=== PATIENT | female | born 2000 | race Caucasian/White ===

== ENCOUNTER 2023-10-17 04:11 | Emergency (ER) | payer OTHER ==
[~2023-10-17] VITALS: Ht 139.7 cm; Wt 86.4 kg
[2023-10-17] MEDS ORDERED: VENTAER INH (07:50)
[2023-10-17] MEDS: NS 1,000 ML IV ONE (08:04)
[2023-10-17 08:17] LABS: BASO # 0.1 10^3/uL (0.0-0.2); BASO % 0.6 % (0.0-1.0); EOS # 0.5 10^3/uL (0.0-0.5); HEMOGLOBIN 14.5 g/dl (12.0-15.5); LYMPH # 3.2 10^3/uL (1.5-5.0); LYMPH % 19.9 % (24.0-44.0); MEAN CORPUSCULAR HEMOGLOBIN 33.3 pg (27.0-33.0); MEAN CORPUSCULAR HGB CONC 34.5 g/dl (32.0-36.5); MEAN CORPUSCULAR VOLUME 96.3 fl (80.0-96.0); MONO # 0.9 10^3/uL (0.0-0.8); MONO % 5.4 % (2.0-8.0); NEUTROPHILS # 11.2 10^3/uL (1.5-8.5); NEUTROPHILS % 70.3 % (36.0-66.0); PLATELET COUNT, AUTOMATED 440 10^3/uL (150-450); RED BLOOD COUNT 4.36 10^6/uL (4.00-5.40)
[2023-10-17 08:44] LABS: BLOOD UREA NITROGEN 9 MG/DL (9-23); CALCIUM LEVEL 8.9 MG/DL (8.5-10.1); CARBON DIOXIDE LEVEL 26 MMOL/L (20-31); CHLORIDE LEVEL 107 MMOL/L (98-107); CREATININE FOR GFR 0.71 MG/DL (0.55-1.30); GLOMERULAR FILTRATION RATE > 60.0 (>60); GLUCOSE, FASTING 93 MG/DL (60-100); POTASSIUM SERUM 4.3 MMOL/L (3.5-5.1); SODIUM LEVEL 138 MMOL/L (136-145)
[2023-10-17 08:58] LABS: HCG, SERUM QUALITATIVE POSITIVE (NEGATIVE)
[2023-10-17 09:18] LABS: PROCALCITONIN 0.04 ng/ml
[2023-10-17] MEDS ORDERED: CEPH500C PO (09:46)
[2023-10-17 10:13] VITALS: BP 121/79; TEMP 96.6; O2SAT 100
== END 2023-10-17 10:40 | disposition home or self-care (01) ==
LOC: EDBD 04:11 → M ED 04:11
DX: Z32.01 Encounter for pregnancy test, result positive (principal); N39.0 Urinary tract infection, site not specified; F17.210 Nicotine dependence, cigarettes, uncomplicated; Z88.1 Allergy status to other antibiotic agents; Z79.51 Long term (current) use of inhaled steroids; Z79.2 Long term (current) use of antibiotics

== ENCOUNTER 2023-10-18 22:18 | Emergency (ER) | payer OTHER ==
[~2023-10-18] VITALS: Ht 147.3 cm; Wt 117.4 kg
[~2023-10-18 22:18] MED LIST: CEPH500C PO; VENTAER INH
[2023-10-19 01:48] VITALS: BP 139/71; TEMP 97.5; O2SAT 100
== END 2023-10-19 03:58 | disposition left against medical advice (07) ==
LOC: M ED 22:18
DX: Z53.21 Procedure and treatment not carried out due to patient leaving prior to being seen by health care provider (principal)

== ENCOUNTER 2023-11-13 18:56 | Emergency (ER) | payer OTHER ==
[~2023-11-13] VITALS: Ht 147.3 cm; Wt 120.8 kg
[2023-11-13 18:56] VITALS: BP 140/77; TEMP 97.8; O2SAT 99
== END 2023-11-13 22:10 | disposition left against medical advice (07) ==
LOC: M ED 18:56
DX: Z53.21 Procedure and treatment not carried out due to patient leaving prior to being seen by health care provider (principal)

== ENCOUNTER 2023-11-14 00:26 | Emergency (ER) | payer OTHER ==
[~2023-11-14] VITALS: Ht 139.7 cm; Wt 121.1 kg
[2023-11-14 00:27] VITALS: TEMP 97.7
[2023-11-14 04:21] LABS: BASO # 0.1 10^3/uL (0.0-0.2); BASO % 0.6 % (0.0-1.0); EOS # 0.5 10^3/uL (0.0-0.5); EOS % 3.1 % (0.0-3.0); HEMATOCRIT 41.9 % (36.0-47.0); HEMOGLOBIN 14.4 g/dl (12.0-15.5); LYMPH # 3.9 10^3/uL (1.5-5.0); LYMPH % 22.9 % (24.0-44.0); MEAN CORPUSCULAR HEMOGLOBIN 32.9 pg (27.0-33.0); MEAN CORPUSCULAR HGB CONC 34.4 g/dl (32.0-36.5); MEAN CORPUSCULAR VOLUME 95.7 fl (80.0-96.0); MONO # 0.9 10^3/uL (0.0-0.8); MONO % 5.2 % (2.0-8.0); NEUTROPHILS # 11.5 10^3/uL (1.5-8.5); NEUTROPHILS % 67.4 % (36.0-66.0); PLATELET COUNT, AUTOMATED 459 10^3/uL (150-450); RED BLOOD COUNT 4.38 10^6/uL (4.00-5.40); WHITE BLOOD COUNT 17.1 10^3/uL (4.0-10.0)
[2023-11-14 04:48] LABS: HCG, SERUM QUANTITATIVE < 2.6 MIU/ML (<4.2)
[2023-11-14 04:49] LABS: BLOOD UREA NITROGEN 13 MG/DL (9-23); CALCIUM LEVEL 9.2 MG/DL (8.5-10.1); CARBON DIOXIDE LEVEL 26 MMOL/L (20-31); CHLORIDE LEVEL 108 MMOL/L (98-107); CREATININE FOR GFR 0.85 MG/DL (0.55-1.30); GLOMERULAR FILTRATION RATE > 60.0 (>60); GLUCOSE, FASTING 86 MG/DL (60-100); POTASSIUM SERUM 4.3 MMOL/L (3.5-5.1); SODIUM LEVEL 138 MMOL/L (136-145)
[2023-11-14 05:30] VITALS: BP 138/82; O2SAT 99
== END 2023-11-14 08:26 | disposition left against medical advice (07) ==
LOC: M ED 00:26
DX: Z53.21 Procedure and treatment not carried out due to patient leaving prior to being seen by health care provider (principal)

== ENCOUNTER → 2023-11-22 | Outpatient (CLI) | payer OTHER ==
[~2023-11-22] MED LIST changes: +SYMB80INH INH
[2023-11-22 13:06] LABS: BASO # 0.1 10^3/uL (0.0-0.2); BASO % 0.4 % (0.0-1.0); EOS # 0.4 10^3/uL (0.0-0.5); EOS % 2.8 % (0.0-3.0); HEMATOCRIT 42.1 % (36.0-47.0); HEMOGLOBIN 14.5 g/dl (12.0-15.5); LYMPH # 2.6 10^3/uL (1.5-5.0); LYMPH % 18.8 % (24.0-44.0); MEAN CORPUSCULAR HEMOGLOBIN 32.7 pg (27.0-33.0); MEAN CORPUSCULAR HGB CONC 34.4 g/dl (32.0-36.5); MEAN CORPUSCULAR VOLUME 94.8 fl (80.0-96.0); MONO # 0.4 10^3/uL (0.0-0.8); NEUTROPHILS # 10.2 10^3/uL (1.5-8.5); NEUTROPHILS % 74.2 % (36.0-66.0); PLATELET COUNT, AUTOMATED 390 10^3/uL (150-450); RED BLOOD COUNT 4.44 10^6/uL (4.00-5.40); WHITE BLOOD COUNT 13.7 10^3/uL (4.0-10.0)
[2023-11-22 13:18] LABS: ERYTHROCYTE SEDIMENTATION RATE 28 mm/hr (0-20)
[2023-11-22 13:22] LABS: INR 1.02; PARTIAL THROMBOPLASTIN TIME 29.2 SECONDS (24.8-34.2); PROTHROMBIN TIME 13.1 SECONDS (12.5-14.5)
[2023-11-22 13:42] LABS: COLLAGEN EPINEPHRINE 81 SECONDS (74-162)
[2023-11-22 13:51] LABS: ALBUMIN 3.6 G/DL (3.2-5.2); ALKALINE PHOSPHATASE 83 U/L (46-116); ALT/SGPT 22 U/L (7.0-40); AST/SGOT 12 U/L (<34); BILIRUBIN,TOTAL 0.4 MG/DL (0.3-1.2); BLOOD UREA NITROGEN 16 MG/DL (9-23); CALCIUM LEVEL 9.1 MG/DL (8.5-10.1); CARBON DIOXIDE LEVEL 27 MMOL/L (20-31); CHLORIDE LEVEL 106 MMOL/L (98-107); CREATININE FOR GFR 0.72 MG/DL (0.55-1.30); GLOMERULAR FILTRATION RATE > 60.0 (>60); GLUCOSE, FASTING 105 MG/DL (60-100); IRON (FE) 89 UG/DL (50-170); PERCENT SATURATION 29.3 % (13.2-45.0); POTASSIUM SERUM 4.1 MMOL/L (3.5-5.1); SODIUM LEVEL 137 MMOL/L (136-145); TOTAL IRON BINDING CAPACITY 304 UG/DL (250-425)
[2023-11-22 13:53] LABS: FERRITIN 64.9 NG/ML (7.3-270.7)
[2023-11-22 13:54] LABS: FREE T4 1.21 NG/DL (0.89-1.76); THYROID STIMULATING HORMONE 1.556 uIU/ML (0.55-4.78)
[2023-11-22 14:24] LABS: HIV 1&2 SCREEN NEGATIVE (NEGATIVE)
[2023-11-22 14:32] LABS: HEPATITIS C VIRUS ABY INDEX 0.02 INDEX (<0.8)
[2023-11-24 12:22] LABS: QuantiFERON-TB Gold Plus NEGATIVE (NEGATIVE)
[2023-11-28 01:17] LABS: THROMBIN TIME 16 sec (13-19)
[2023-11-28 08:03] LABS: CYTOGENETICS FISH FOR PATH SO See Pathology Report; JAK2 MUTATIONS FOR PATH SENDOU See Pathology Report
== END ==
LOC: M LAB 11-21 16:31
PROVIDERS: ATTEND Internal Medicine Hematology & Oncology
DX: D72.829 Elevated white blood cell count, unspecified (principal)

== ENCOUNTER 2024-01-19 00:45 | Emergency (ER) | payer OTHER ==
[~2024-01-19] VITALS: Ht 147.3 cm; Wt 124.8 kg
[2024-01-19] MEDS ORDERED: CYCL5TAB4 PO (04:09)
[2024-01-19 04:24] VITALS: BP 144/73; TEMP 97.3; O2SAT 99
== END 2024-01-19 04:26 | disposition home or self-care (01) ==
LOC: M ED 00:45
DX: S13.4XXA Sprain of ligaments of cervical spine, initial encounter (principal); Y92.481 Parking lot as the place of occurrence of the external cause; Y93.9 Activity, unspecified; Y99.9 Unspecified external cause status; M25.561 Pain in right knee; J45.909 Unspecified asthma, uncomplicated; V49.50XA Passenger injured in collision with unspecified motor vehicles in traffic accident, initial encounter; Z88.0 Allergy status to penicillin; Z88.1 Allergy status to other antibiotic agents; Z79.51 Long term (current) use of inhaled steroids; Z79.899 Other long term (current) drug therapy

== ENCOUNTER 2024-01-23 23:23 | Emergency (ER) | payer OTHER ==
[~2024-01-23] VITALS: Ht 147.3 cm; Wt 124.1 kg
[~2024-01-23 23:23] MED LIST changes: +CYCL5TAB4 PO
[2024-01-24] MEDS ORDERED: NAPR-837 PO (01:34)
[2024-01-24] MEDS: NAPROXEN 250 MG TAB PO ONE (01:35)
[2024-01-24 02:00] VITALS: BP 140/93; TEMP 98.2; O2SAT 98
== END 2024-01-24 02:14 | disposition home or self-care (01) ==
LOC: M ED 01-24 00:05
DX: R53.81 Other malaise (principal); F17.210 Nicotine dependence, cigarettes, uncomplicated; Z88.1 Allergy status to other antibiotic agents; Z79.51 Long term (current) use of inhaled steroids; Z79.52 Long term (current) use of systemic steroids; Z79.899 Other long term (current) drug therapy

== ENCOUNTER 2024-01-28 23:35 | Emergency (ER) | payer OTHER ==
[~2024-01-28] VITALS: Ht 147.3 cm; Wt 122.9 kg
[~2024-01-28 23:35] MED LIST changes: +NAPR-837 PO
[2024-01-29 00:56] VITALS: BP 140/86; TEMP 99.8
[2024-01-29] MEDS ORDERED: BENZ200C70 PO ×2 (01:53→16:06)
[2024-01-29] MEDS ORDERED: PRED20TA PO ×2 (01:53→16:06)
[2024-01-29] MEDS: predniSONE 20 MG TAB PO ONE (02:07)
[2024-01-29] MEDS: BENZONATATE 100MG CAPSULE PO ONE (02:07)
[2024-01-29 02:55] LABS: HCG, SERUM QUALITATIVE NEGATIVE (NEGATIVE)
[2024-01-29] MEDS ORDERED: LEVO1TAB40 PO ×2 (03:17→16:06)
[2024-01-29 03:20] VITALS: O2SAT 97
[2024-01-29] MEDS: LevoFLOXacin 750 MG TABLET PO ONE (03:20)
== END 2024-01-29 03:34 | disposition home or self-care (01) ==
LOC: EDBD 23:35 → M ED 01-29 01:04
DX: J20.9 Acute bronchitis, unspecified (principal); J18.9 Pneumonia, unspecified organism; J45.909 Unspecified asthma, uncomplicated; F17.210 Nicotine dependence, cigarettes, uncomplicated; Z88.1 Allergy status to other antibiotic agents; Z79.51 Long term (current) use of inhaled steroids; Z79.52 Long term (current) use of systemic steroids; Z79.899 Other long term (current) drug therapy
CPT/HCPCS: 36415; 71046; 84703; 87486; 87581; 87633; 87798; 99284; J7512

== ENCOUNTER 2024-01-31 04:44 | Emergency (ER) | payer OTHER ==
[~2024-01-31] VITALS: Ht 147.3 cm; Wt 122.8 kg
[~2024-01-31 04:44] MED LIST changes: +BENZ200C70 PO; +LEVO1TAB40 PO; +PRED20TA PO
[2024-01-31] MEDS: IPRATROPIUM 0.5MG/ALBUTEROL 2.5MG INH SOL UD 3ML (DUONEB) NEB ONE (06:52)
[2024-01-31] MEDS: guaiFENesin/CODEINE SYRUP 5 ML UDC PO ONE (07:04)
[2024-01-31] MEDS ORDERED: GUAI1SOL7 PO (07:35)
[2024-01-31 08:05] VITALS: BP 132/88; TEMP 97.8; O2SAT 96
== END 2024-01-31 08:45 | disposition home or self-care (01) ==
LOC: M ED 04:44
DX: J98.01 Acute bronchospasm (principal); J20.9 Acute bronchitis, unspecified; J45.909 Unspecified asthma, uncomplicated; F17.210 Nicotine dependence, cigarettes, uncomplicated; Z88.1 Allergy status to other antibiotic agents; Z79.51 Long term (current) use of inhaled steroids; Z79.52 Long term (current) use of systemic steroids; Z79.899 Other long term (current) drug therapy

== ENCOUNTER 2024-02-01 00:29 | Emergency (ER) | payer OTHER ==
[~2024-02-01] VITALS: Ht 147.3 cm; Wt 126.0 kg
[~2024-02-01 00:29] MED LIST changes: +GUAI1SOL7 PO
[2024-02-01 00:34] VITALS: TEMP 97.8
[2024-02-01 03:00] VITALS: BP 137/79; O2SAT 97
[2024-02-02] MEDS ORDERED: ALB2.5NEB NEB (07:49)
== END 2024-02-01 03:30 | disposition left against medical advice (07) ==
LOC: EDBD 00:29 → M ED 00:29
DX: Z53.21 Procedure and treatment not carried out due to patient leaving prior to being seen by health care provider (principal)

== ENCOUNTER 2024-02-02 02:26 | Emergency (ER) | payer OTHER ==
[~2024-02-02] VITALS: Ht 147.3 cm; Wt 121.6 kg
[2024-02-02] MEDS: IPRATROPIUM 0.5MG/ALBUTEROL 2.5MG INH SOL UD 3ML (DUONEB) NEB ONE (07:19)
[2024-02-02] MEDS ORDERED: ALB2.5NEB NEB (07:49)
[2024-02-02 08:04] VITALS: BP 139/84; TEMP 96.6; O2SAT 96
== END 2024-02-02 08:07 | disposition home or self-care (01) ==
LOC: M ED 02:26
DX: J20.9 Acute bronchitis, unspecified (principal); R06.02 Shortness of breath; F17.210 Nicotine dependence, cigarettes, uncomplicated; Z88.1 Allergy status to other antibiotic agents; Z79.51 Long term (current) use of inhaled steroids; Z79.52 Long term (current) use of systemic steroids; Z79.899 Other long term (current) drug therapy

== ENCOUNTER 2024-05-16 13:42 | Emergency (ER) | payer OTHER ==
[~2024-05-16] VITALS: Ht 147.3 cm; Wt 124.8 kg
[~2024-05-16 13:42] MED LIST changes: +ALB2.5NEB NEB
[2024-05-16] MEDS ORDERED: PRED10TA2 PO (16:56)
[2024-05-16] MEDS ORDERED: OMEP40CA4 PO (16:56)
[2024-05-16 17:21] VITALS: BP 129/87; TEMP 97.5; O2SAT 97
== END 2024-05-16 17:22 | disposition home or self-care (01) ==
LOC: M ED 13:42
DX: R06.02 Shortness of breath (principal); R53.83 Other fatigue; Z88.1 Allergy status to other antibiotic agents; Z79.52 Long term (current) use of systemic steroids; Z79.899 Other long term (current) drug therapy

== ENCOUNTER 2024-05-28 04:25 | Emergency (ER) | payer OTHER ==
[~2024-05-28] VITALS: Ht 147.3 cm; Wt 123.5 kg
[~2024-05-28 04:25] MED LIST changes: +OMEP40CA4 PO; +PRED10TA2 PO
[2024-05-28 05:03] LABS: VENOUS BASE EXCESS -3.1 (-2.0-2.0); VENOUS HCO3 23.1 MMOL/L (23.0-27.0); VENOUS O2 SATURATION 85.1 % (60.0-80.0); VENOUS PARTIAL PRESSURE CO2 45.4 mmHg (38.0-50.0); VENOUS PARTIAL PRESSURE O2 49.7 mmHg (30.0-50.0); VENOUS PH 7.325 UNITS (7.330-7.430); VENOUS STANDARD HCO3 21.6 MMOL/L; VENOUS TOTAL CO2 24.5 MMOL/L (24.0-28.0)
[2024-05-28 05:07] LABS: BASO # 0.1 10^3/uL (0.0-0.2); BASO % 0.4 % (0.0-1.0); EOS # 0.3 10^3/uL (0.0-0.5); EOS % 1.8 % (0.0-3.0); HEMATOCRIT 41.6 % (36.0-47.0); HEMOGLOBIN 14.5 g/dl (12.0-15.5); LYMPH # 2.9 10^3/uL (1.5-5.0); LYMPH % 16.5 % (24.0-44.0); MEAN CORPUSCULAR HEMOGLOBIN 32.9 pg (27.0-33.0); MEAN CORPUSCULAR HGB CONC 34.9 g/dl (32.0-36.5); MEAN CORPUSCULAR VOLUME 94.3 fl (80.0-96.0); MONO # 0.9 10^3/uL (0.0-0.8); MONO % 5.2 % (2.0-8.0); NEUTROPHILS # 13.2 10^3/uL (1.5-8.5); NEUTROPHILS % 75.4 % (36.0-66.0); PLATELET COUNT, AUTOMATED 460 10^3/uL (150-450); RED BLOOD COUNT 4.41 10^6/uL (4.00-5.40); WHITE BLOOD COUNT 17.6 10^3/uL (4.0-10.0)
[2024-05-28 05:42] LABS: ALBUMIN 3.5 G/DL (3.2-5.2); ALKALINE PHOSPHATASE 79 U/L (35-104); ALT/SGPT 19 U/L (7.0-40); AST/SGOT 11 U/L (<34); BILIRUBIN,DIRECT 0.2 MG/DL (<0.4); BILIRUBIN,TOTAL 0.5 MG/DL (0.3-1.2); BLOOD UREA NITROGEN 8 MG/DL (9-23); CALCIUM LEVEL 8.7 MG/DL (8.5-10.1); CARBON DIOXIDE LEVEL 24 MMOL/L (20-31); CHLORIDE LEVEL 107 MMOL/L (98-107); CK-MB VALUE MASS < 1.0 NG/ML (<3.6); CPK CREATINE PHOSPHOKINASE 58 U/L (34-145); CREATININE FOR GFR 0.67 MG/DL (0.55-1.30); GLOMERULAR FILTRATION RATE > 60.0 (>60); GLUCOSE, FASTING 98 MG/DL (60-100); MB/CK RELATIVE INDEX 1.72 (< OR =4); SODIUM LEVEL 139 MMOL/L (136-145); TOTAL PROTEIN 6.9 G/DL (5.7-8.2)
[2024-05-28 05:43] LABS: THYROID STIMULATING HORMONE 2.251 uIU/ML (0.55-4.78); THYROXINE (T4) 10.9 UG/DL (4.5-10.9)
[2024-05-28 06:53] VITALS: BP 148/86; TEMP 98.4; O2SAT 99
[2024-05-28 09:28] LABS: KETONE, URINE AUTO RFX NEGATIVE (NEGATIVE); MUCUS, URINE RFX LARGE (NEGATIVE); NITRITE, URINE AUTO RFX NEGATIVE (NEGATIVE); RBC, URINE AUTO RFX 2 /HPF (0-3); SQUAM EPITHELIAL CELL UR AURFX 6 /HPF (0-6)
[2024-05-28 09:30] LABS: LEUKOCYTE ESTERASE UR AUTO RFX 3+ (NEGATIVE); WBC, URINE AUTO RFX 23 /HPF (0-3)
[2024-05-28] MEDS: ALBUTEROL SULFATE 2.5MG/0.5ML INH NEB SOLN NEB ONE (09:50)
[2024-05-28] MEDS ORDERED: NITR100C3 PO (12:22)
[2024-05-28 12:25] VITALS: O2SAT 97
[2024-05-28] MEDS: NITROFURANTOIN (MACROBID) 100 MG CAP PO ONE (12:40)
== END 2024-05-28 12:44 | disposition home or self-care (01) ==
LOC: M ED 04:25
DX: N39.0 Urinary tract infection, site not specified (principal); G47.33 Obstructive sleep apnea (adult) (pediatric); F17.210 Nicotine dependence, cigarettes, uncomplicated; Z88.1 Allergy status to other antibiotic agents; Z79.52 Long term (current) use of systemic steroids; Z79.899 Other long term (current) drug therapy

== ENCOUNTER 2024-08-30 22:26 | Emergency (ER) | payer OTHER ==
[~2024-08-30] VITALS: Ht 147.3 cm; Wt 126.3 kg
[~2024-08-30 22:26] MED LIST changes: +ALBU8.5H; +CEFD1CAP9; +NITR100C3 PO; +VITAMIN D 50000 UNIT PO
[2024-08-31 03:01] VITALS: BP 129/85; TEMP 97; O2SAT 100
== END 2024-08-31 04:03 | disposition left against medical advice (07) ==
LOC: M ED 22:26
DX: Z53.21 Procedure and treatment not carried out due to patient leaving prior to being seen by health care provider (principal)

== ENCOUNTER 2024-09-01 21:46 | Emergency (ER) | payer OTHER ==
[~2024-09-01] VITALS: Ht 147.3 cm; Wt 125.5 kg
[2024-09-02 00:04] VITALS: TEMP 97.4
[2024-09-02 02:46] LABS: BASO # 0.1 10^3/uL (0.0-0.2); BASO % 0.5 % (0.0-1.0); EOS # 0.3 10^3/uL (0.0-0.5); EOS % 1.7 % (0.0-3.0); LYMPH # 4.0 10^3/uL (1.5-5.0); LYMPH % 23.6 % (24.0-44.0); MONO # 0.8 10^3/uL (0.0-0.8); MONO % 4.6 % (2.0-8.0); NEUTROPHILS # 11.5 10^3/uL (1.5-8.5); NEUTROPHILS % 68.1 % (36.0-66.0); PLATELET COUNT, AUTOMATED 385 10^3/uL (150-450)
[2024-09-02 03:18] LABS: ALT/SGPT 19 U/L (7.0-40); AST/SGOT 12 U/L (<34); CALCIUM LEVEL 8.9 MG/DL (8.5-10.1); CARBON DIOXIDE LEVEL 27 MMOL/L (20-31); CHLORIDE LEVEL 107 MMOL/L (98-107); CK-MB VALUE MASS < 1.0 NG/ML (<3.6); CREATININE FOR GFR 0.78 MG/DL (0.55-1.30); GLOMERULAR FILTRATION RATE > 90.0 (>60); POTASSIUM SERUM 3.9 MMOL/L (3.5-5.1); SODIUM LEVEL 141 MMOL/L (136-145)
[2024-09-02 03:28] LABS: CPK CREATINE PHOSPHOKINASE 26 U/L (34-145)
[2024-09-02 04:11] LABS: CK-MB VALUE MASS < 1.0 NG/ML (<3.6)
[2024-09-02 04:13] LABS: CPK CREATINE PHOSPHOKINASE 29 U/L (34-145)
[2024-09-02 05:45] VITALS: BP 135/71
[2024-09-02 05:46] VITALS: O2SAT 98
[2024-09-02] MEDS ORDERED: LOPE-39 PO (06:35)
[2024-09-02] MEDS ORDERED: BOUDREAUX'S BUTT PASTE TOP ONE (09:00)
[2024-09-08] MEDS ORDERED: PANT40TA29 PO (08:14)
[2024-09-08] MEDS ORDERED: HYDR-643 PO (08:14)
== END 2024-09-02 07:03 | disposition home or self-care (01) ==
LOC: M ED 21:46
DX: R19.7 Diarrhea, unspecified (principal); B37.2 Candidiasis of skin and nail; I10 Essential (primary) hypertension; F17.200 Nicotine dependence, unspecified, uncomplicated; Z88.1 Allergy status to other antibiotic agents; Z79.52 Long term (current) use of systemic steroids; Z79.899 Other long term (current) drug therapy; Z79.2 Long term (current) use of antibiotics

== ENCOUNTER 2024-09-08 07:58 | Emergency (ER) | payer OTHER ==
[~2024-09-08] VITALS: Ht 147.3 cm; Wt 125.2 kg
[~2024-09-08 07:58] MED LIST changes: +LOPE-39 PO
[2024-09-08] MEDS ORDERED: SERTRALINE (08:14)
[2024-09-08] MEDS ORDERED: BUDE10.2 (08:14)
[2024-09-08] MEDS ORDERED: PANT40TA29 (08:14)
[2024-09-08] MEDS ORDERED: HYDR-643 (08:14)
[2024-09-08] MEDS ORDERED: IPRA0.00 (08:14)
[2024-09-08] MEDS ORDERED: TRAZ-252 (08:14)
[2024-09-08 08:44] LABS: BASO # 0.1 10^3/uL (0.0-0.2); BASO % 0.4 % (0.0-1.0); EOS # 0.2 10^3/uL (0.0-0.5); EOS % 1.2 % (0.0-3.0); LYMPH # 3.0 10^3/uL (1.5-5.0); LYMPH % 18.2 % (24.0-44.0); MONO # 0.9 10^3/uL (0.0-0.8); MONO % 5.4 % (2.0-8.0); NEUTROPHILS # 12.2 10^3/uL (1.5-8.5); NEUTROPHILS % 73.8 % (36.0-66.0); PLATELET COUNT, AUTOMATED 418 10^3/uL (150-450)
[2024-09-08 09:09] LABS: ALT/SGPT 22 U/L (7.0-40); AST/SGOT 14 U/L (<34); CALCIUM LEVEL 8.7 MG/DL (8.5-10.1); CARBON DIOXIDE LEVEL 25 MMOL/L (20-31); CHLORIDE LEVEL 104 MMOL/L (98-107); CREATININE FOR GFR 0.79 MG/DL (0.55-1.30); GLOMERULAR FILTRATION RATE > 90.0 (>60); HCG, SERUM QUALITATIVE NEGATIVE (NEGATIVE); POTASSIUM SERUM 3.9 MMOL/L (3.5-5.1); SODIUM LEVEL 140 MMOL/L (136-145)
[2024-09-08] MEDS: ACETAMINOPHEN 500 MG TAB PO ONE (12:52)
[2024-09-08 13:30] VITALS: BP 103/60; O2SAT 97
[2024-09-08] MEDS ORDERED: IBUP-1022 PO (13:35)
[2024-09-08] MEDS ORDERED: CEFD300CAP PO (13:35)
[2024-09-08 13:43] VITALS: TEMP 96.8
== END 2024-09-08 13:47 | disposition home or self-care (01) ==
LOC: M ED 07:58
DX: R51.9 Headache, unspecified (principal); H66.001 Acute suppurative otitis media without spontaneous rupture of ear drum, right ear; H52.10 Myopia, unspecified eye; G47.33 Obstructive sleep apnea (adult) (pediatric); F17.210 Nicotine dependence, cigarettes, uncomplicated; Z88.1 Allergy status to other antibiotic agents; Z79.51 Long term (current) use of inhaled steroids; Z79.1 Long term (current) use of non-steroidal anti-inflammatories (NSAID); Z79.2 Long term (current) use of antibiotics; Z79.899 Other long term (current) drug therapy

== ENCOUNTER 2024-09-17 11:19 | Emergency (ER) | payer OTHER ==
[~2024-09-17] VITALS: Ht 144.8 cm; Wt 124.4 kg
[~2024-09-17 11:19] MED LIST changes: +BUDE10.2; +CEFD300CAP PO; +HYDR-643 PO; +IBUP-1022 PO; +IPRA0.00; +PANT40TA29 PO; +SERTRALINE; +TRAZ-252
[2024-09-17 12:31] LABS: APPEARANCE, URINE HAZY (CLEAR); BACTERIA, URINE AUTO 1+ (NEGATIVE); BILIRUBIN, URINE AUTO NEGATIVE (NEGATIVE); BLOOD, URINE BLOOD NEGATIVE (NEGATIVE); GLUCOSE, URINE (UA) AUTO NEGATIVE (NEGATIVE); KETONE, URINE AUTO NEGATIVE (NEGATIVE); LEUKOCYTE ESTERASE, URINE AUTO 3+ (NEGATIVE); MUCUS, URINE SMALL (NEGATIVE); NITRITE, URINE AUTO NEGATIVE (NEGATIVE); PROTEIN, URINE AUTO NEGATIVE (NEGATIVE); RBC, URINE AUTO 0 /HPF (0-3); SPECIFIC GRAVITY URINE AUTO 1.019 (1.002-1.035); SQUAMOUS EPITHELIAL CELL UR AU 0 /HPF (0-6); UROBILINOGEN, URINE AUTO 0.2 mg/dL (0.0-2.0); WBC, URINE AUTO 8 /HPF (0-3)
[2024-09-17 13:00] VITALS: BP 150/88; TEMP 98; O2SAT 100
[2024-09-17] MEDS ORDERED: NIFE-3 PO (13:18)
[2024-09-17] MEDS ORDERED: ZOLO100T PO (13:18)
== END 2024-09-17 13:06 | disposition home or self-care (01) ==
LOC: M ED 11:19 → EDBD 11:19 → M ED 13:06
DX: R50.9 Fever, unspecified (principal); R06.00 Dyspnea, unspecified; I10 Essential (primary) hypertension; G47.33 Obstructive sleep apnea (adult) (pediatric); F41.9 Anxiety disorder, unspecified

== ENCOUNTER 2024-09-20 20:32 | Emergency (ER) | payer OTHER ==
[~2024-09-20] VITALS: Ht 175.3 cm; Wt 125.1 kg
[~2024-09-20 20:32] MED LIST changes: +NIFE-3 PO; +ZOLO100T PO
[2024-09-20] MEDS ORDERED: TRAZ-252 PO (20:50)
[2024-09-21 03:27] VITALS: BP 141/68; TEMP 97; O2SAT 99
== END 2024-09-21 04:18 | disposition left against medical advice (07) ==
LOC: EDBD 20:32 → M ED 20:32
DX: Z53.21 Procedure and treatment not carried out due to patient leaving prior to being seen by health care provider (principal)

== ENCOUNTER 2024-09-21 21:06 | Emergency (ER) | payer OTHER ==
[~2024-09-21] VITALS: Ht 144.8 cm; Wt 124.0 kg
[~2024-09-21 21:06] MED LIST changes: +TRAZ-252 PO
[2024-09-22 07:19] VITALS: BP 122/69
[2024-09-22 07:51] VITALS: O2SAT 99
[2024-09-22 08:03] VITALS: TEMP 96.5
== END 2024-09-22 08:08 | disposition home or self-care (01) ==
LOC: EDBD 21:06 → M ED 21:06
DX: R06.02 Shortness of breath (principal); G47.33 Obstructive sleep apnea (adult) (pediatric); Z88.1 Allergy status to other antibiotic agents; Z79.51 Long term (current) use of inhaled steroids; Z79.899 Other long term (current) drug therapy

== ENCOUNTER 2024-09-25 01:47 | Emergency (ER) | payer OTHER ==
[~2024-09-25] VITALS: Ht 175.3 cm; Wt 125.5 kg
[2024-09-25 04:02] LABS: BASO # 0.1 10^3/uL (0.0-0.2); BASO % 0.5 % (0.0-1.0); EOS # 0.3 10^3/uL (0.0-0.5); EOS % 2.1 % (0.0-3.0); LYMPH # 3.2 10^3/uL (1.5-5.0); LYMPH % 25.7 % (24.0-44.0); MONO # 0.8 10^3/uL (0.0-0.8); MONO % 6.0 % (2.0-8.0); NEUTROPHILS # 8.2 10^3/uL (1.5-8.5); NEUTROPHILS % 65.3 % (36.0-66.0); PLATELET COUNT, AUTOMATED 334 10^3/uL (150-450)
[2024-09-25 04:27] LABS: CK-MB VALUE MASS < 1.0 NG/ML (<3.6); HCG, SERUM QUALITATIVE NEGATIVE (NEGATIVE)
[2024-09-25 04:28] LABS: ALT/SGPT 23 U/L (7.0-40); AST/SGOT 15 U/L (<34); CALCIUM LEVEL 8.5 MG/DL (8.5-10.1); CARBON DIOXIDE LEVEL 26 MMOL/L (20-31); CHLORIDE LEVEL 107 MMOL/L (98-107); CPK CREATINE PHOSPHOKINASE 64 U/L (34-145); CREATININE FOR GFR 0.82 MG/DL (0.55-1.30); GLOMERULAR FILTRATION RATE > 90.0 (>60); POTASSIUM SERUM 4.0 MMOL/L (3.5-5.1); SODIUM LEVEL 143 MMOL/L (136-145)
[2024-09-25] MEDS: KETOROLAC 30 MG/ML 1 ML VIAL IV ONE (06:15)
[2024-09-25 06:33] VITALS: BP 114/56; TEMP 98.2; O2SAT 95
== END 2024-09-25 06:36 | disposition home or self-care (01) ==
LOC: M ED 01:47 → EDBD 01:47 → M ED 06:36
DX: R51.9 Headache, unspecified (principal); F41.9 Anxiety disorder, unspecified; F31.9 Bipolar disorder, unspecified; F17.210 Nicotine dependence, cigarettes, uncomplicated; Z88.1 Allergy status to other antibiotic agents; Z79.51 Long term (current) use of inhaled steroids; Z79.899 Other long term (current) drug therapy

== ENCOUNTER 2024-09-30 05:36 | Emergency (ER) | payer OTHER ==
[~2024-09-30] VITALS: Ht 144.8 cm; Wt 125.5 kg
[2024-09-30] MEDS: KETOROLAC 30 MG/ML 1 ML VIAL IV ONE (07:50)
[2024-09-30] MEDS: ONDANSETRON 4MG 2ML VIAL IV ONE (07:50)
[2024-09-30 07:56] LABS: BASO % 0.5 % (0.0-1.0); EOS % 2.3 % (0.0-3.0); LYMPH % 24.1 % (24.0-44.0); MONO % 5.5 % (2.0-8.0); NEUTROPHILS % 67.1 % (36.0-66.0); PLATELET COUNT, AUTOMATED 390 10^3/uL (150-450)
[2024-09-30 07:57] LABS: BASO # 0.1 10^3/uL (0.0-0.2); EOS # 0.3 10^3/uL (0.0-0.5); LYMPH # 3.6 10^3/uL (1.5-5.0); MONO # 0.8 10^3/uL (0.0-0.8); NEUTROPHILS # 9.9 10^3/uL (1.5-8.5)
[2024-09-30 08:23] LABS: CALCIUM LEVEL 9.2 MG/DL (8.5-10.1); CARBON DIOXIDE LEVEL 24 MMOL/L (20-31); CHLORIDE LEVEL 107 MMOL/L (98-107); CREATININE FOR GFR 0.80 MG/DL (0.55-1.30); GLOMERULAR FILTRATION RATE > 90.0 (>60); POTASSIUM SERUM 4.4 MMOL/L (3.5-5.1); SODIUM LEVEL 142 MMOL/L (136-145)
[2024-09-30 08:58] VITALS: BP 143/65; TEMP 97.3; O2SAT 99
== END 2024-09-30 09:00 | disposition home or self-care (01) ==
LOC: EDBD 05:36 → M ED 05:36
DX: R51.9 Headache, unspecified (principal); H53.8 Other visual disturbances; D72.829 Elevated white blood cell count, unspecified; G47.33 Obstructive sleep apnea (adult) (pediatric); F41.9 Anxiety disorder, unspecified; F17.210 Nicotine dependence, cigarettes, uncomplicated; Z88.1 Allergy status to other antibiotic agents; Z79.51 Long term (current) use of inhaled steroids; Z79.899 Other long term (current) drug therapy
CPT/HCPCS: 70450; 80048; 85025; 96374; 99284; J1885; J2405

== ENCOUNTER 2024-09-30 23:06 | Emergency (ER) | payer OTHER ==
[~2024-09-30] VITALS: Ht 175.3 cm; Wt 125.4 kg
[2024-09-30 23:11] VITALS: BP 138/85; TEMP 97.3; O2SAT 98
[2024-10-01] MEDS: ALBUTEROL SULFATE 2.5 MG/0.5 ML INH CONCENTRATE NEB SOLN NEB ONE (04:09)
[2024-10-01 04:33] LABS: BASO # 0.0 10^3/uL (0.0-0.2); BASO % 0.3 % (0.0-1.0); EOS # 0.2 10^3/uL (0.0-0.5); EOS % 2.0 % (0.0-3.0); LYMPH # 2.6 10^3/uL (1.5-5.0); LYMPH % 21.4 % (24.0-44.0); MONO # 0.6 10^3/uL (0.0-0.8); MONO % 4.8 % (2.0-8.0); NEUTROPHILS # 8.5 10^3/uL (1.5-8.5); NEUTROPHILS % 71.1 % (36.0-66.0); PLATELET COUNT, AUTOMATED 318 10^3/uL (150-450)
[2024-10-01 05:01] LABS: CK-MB VALUE MASS < 1.0 NG/ML (<3.6)
[2024-10-01 05:02] LABS: CALCIUM LEVEL 8.5 MG/DL (8.5-10.1); CARBON DIOXIDE LEVEL 24 MMOL/L (20-31); CHLORIDE LEVEL 107 MMOL/L (98-107); CREATININE FOR GFR 0.79 MG/DL (0.55-1.30); GLOMERULAR FILTRATION RATE > 90.0 (>60); POTASSIUM SERUM 4.0 MMOL/L (3.5-5.1); SODIUM LEVEL 142 MMOL/L (136-145)
[2024-10-01 05:03] LABS: CPK CREATINE PHOSPHOKINASE 49 U/L (34-145)
== END 2024-10-01 06:27 | disposition home or self-care (01) ==
LOC: M ED 23:06
DX: Z76.5 Malingerer [conscious simulation] (principal); F17.210 Nicotine dependence, cigarettes, uncomplicated; Z88.1 Allergy status to other antibiotic agents; Z79.51 Long term (current) use of inhaled steroids; Z79.899 Other long term (current) drug therapy

== ENCOUNTER 2024-10-13 18:40 | Emergency (ER) | payer OTHER ==
[~2024-10-13] VITALS: Ht 144.8 cm; Wt 12.6 kg
[2024-10-13 18:43] VITALS: BP 166/78; TEMP 97.4; O2SAT 99
== END 2024-10-13 19:47 | disposition left against medical advice (07) ==
LOC: M ED 18:40
DX: Z53.21 Procedure and treatment not carried out due to patient leaving prior to being seen by health care provider (principal)

== ENCOUNTER 2024-10-21 19:35 | Emergency (ER) | payer OTHER ==
[~2024-10-21] VITALS: Ht 144.8 cm; Wt 124.9 kg
[~2024-10-21 19:35] MED LIST changes: -IBUP-1022 PO; +IBUP600T42 PO
[2024-10-21 23:44] VITALS: BP 158/88; TEMP 97.4; O2SAT 98
== END 2024-10-22 02:27 | disposition left against medical advice (07) ==
LOC: M ED 19:35
DX: Z53.21 Procedure and treatment not carried out due to patient leaving prior to being seen by health care provider (principal)

== ENCOUNTER 2024-10-28 14:55 | Emergency (ER) | payer OTHER ==
[2024-10-28 14:58] VITALS: TEMP 97.5
[2024-10-28 16:05] LABS: BASO # 0.1 10^3/uL (0.0-0.2); BASO % 0.5 % (0.0-1.0); EOS # 0.3 10^3/uL (0.0-0.5); EOS % 1.8 % (0.0-3.0); LYMPH # 2.5 10^3/uL (1.5-5.0); LYMPH % 17.2 % (24.0-44.0); MONO # 0.9 10^3/uL (0.0-0.8); MONO % 6.1 % (2.0-8.0); NEUTROPHILS # 10.9 10^3/uL (1.5-8.5); NEUTROPHILS % 73.8 % (36.0-66.0); PLATELET COUNT, AUTOMATED 376 10^3/uL (150-450)
[2024-10-28 16:32] LABS: HCG, SERUM QUALITATIVE NEGATIVE (NEGATIVE)
[2024-10-28 16:34] LABS: ALT/SGPT 25 U/L (7.0-40); AST/SGOT 20 U/L (<34)
[2024-10-28] MEDS: NS (Normal Saline) 0.9% 1,000 ML IV ONE (17:45)
[2024-10-28] MEDS ORDERED: ISOVUE-370 76% 100 ML VIAL As Ordered ONE (17:54)
[2024-10-28 19:00] VITALS: BP 133/84
[2024-10-28 19:15] VITALS: O2SAT 98
== END 2024-10-28 19:26 | disposition home or self-care (01) ==
LOC: M ED 16:22
DX: J98.01 Acute bronchospasm (principal); R06.00 Dyspnea, unspecified; I10 Essential (primary) hypertension; K21.9 Gastro-esophageal reflux disease without esophagitis; F31.9 Bipolar disorder, unspecified; F17.210 Nicotine dependence, cigarettes, uncomplicated; Z88.1 Allergy status to other antibiotic agents; Z79.51 Long term (current) use of inhaled steroids; Z79.899 Other long term (current) drug therapy
CPT/HCPCS: 71045; 71275; 80047; 80076; 84703; 85025; 85379; 87486; 87581; 87633; 87798; 93005; 93041; 94760; 96360; 96361; 99285; Q9967

== ENCOUNTER 2024-11-01 17:53 | Emergency (ER) | payer OTHER ==
[~2024-11-01] VITALS: Ht 144.8 cm; Wt 125.0 kg
[2024-11-01 17:58] VITALS: TEMP 98.1
[2024-11-01 19:38] VITALS: O2SAT 99
[2024-11-01 21:36] VITALS: BP 119/55
== END 2024-11-01 22:49 | disposition home or self-care (01) ==
LOC: M ED 17:53
DX: R42 Dizziness and giddiness (principal); B34.9 Viral infection, unspecified; I10 Essential (primary) hypertension; G90.A Postural orthostatic tachycardia syndrome [POTS]; J45.909 Unspecified asthma, uncomplicated; G47.33 Obstructive sleep apnea (adult) (pediatric); F17.210 Nicotine dependence, cigarettes, uncomplicated; Z88.1 Allergy status to other antibiotic agents; Z79.51 Long term (current) use of inhaled steroids; Z79.899 Other long term (current) drug therapy

== ENCOUNTER 2024-11-27 15:16 | Emergency (ER) | payer OTHER ==
[~2024-11-27] VITALS: Ht 144.8 cm; Wt 128.8 kg
[2024-11-27] MEDS ORDERED: BENZ-18 (15:25)
[2024-11-27 16:39] LABS: KETONE, URINE AUTO RFX NEGATIVE (NEGATIVE); MUCUS, URINE RFX SMALL (NEGATIVE); NITRITE, URINE AUTO RFX NEGATIVE (NEGATIVE); RBC, URINE AUTO RFX 20 /HPF (0-3); SQUAM EPITHELIAL CELL UR AURFX 14 /HPF (0-6)
[2024-11-27 16:44] LABS: BASO # 0.1 10^3/uL (0.0-0.2); BASO % 0.4 % (0.0-1.0); EOS # 0.3 10^3/uL (0.0-0.5); EOS % 1.9 % (0.0-3.0); LYMPH # 2.8 10^3/uL (1.5-5.0); LYMPH % 19.3 % (24.0-44.0); MONO # 0.6 10^3/uL (0.0-0.8); MONO % 4.5 % (2.0-8.0); NEUTROPHILS # 10.5 10^3/uL (1.5-8.5); NEUTROPHILS % 73.4 % (36.0-66.0); PLATELET COUNT, AUTOMATED 388 10^3/uL (150-450)
[2024-11-27 16:45] LABS: LEUKOCYTE ESTERASE UR AUTO RFX 3+ (NEGATIVE); WBC, URINE AUTO RFX 20 /HPF (0-3)
[2024-11-27 16:52] LABS: CK-MB VALUE MASS < 1.0 NG/ML (<3.6)
[2024-11-27 16:54] LABS: CPK CREATINE PHOSPHOKINASE 71 U/L (34-145)
[2024-11-27 16:55] LABS: ALT/SGPT 21 U/L (7.0-40); AST/SGOT 12 U/L (<34); CALCIUM LEVEL 8.5 MG/DL (8.5-10.1); CARBON DIOXIDE LEVEL 23 MMOL/L (20-31); CHLORIDE LEVEL 107 MMOL/L (98-107); CREATININE FOR GFR 0.70 MG/DL (0.55-1.30); GLOMERULAR FILTRATION RATE > 90.0 (>60); POTASSIUM SERUM 4.1 MMOL/L (3.5-5.1); SODIUM LEVEL 135 MMOL/L (136-145)
[2024-11-27 16:56] LABS: THYROXINE (T4) 9.4 UG/DL (4.5-10.9)
[2024-11-27 18:58] VITALS: BP 143/80; TEMP 98.5; O2SAT 97
[2024-11-27] MEDS ORDERED: CIPR250T26 PO (19:07)
== END 2024-11-27 19:13 | disposition home or self-care (01) ==
LOC: M ED 15:16
DX: N39.0 Urinary tract infection, site not specified (principal); I10 Essential (primary) hypertension; G47.33 Obstructive sleep apnea (adult) (pediatric); F31.9 Bipolar disorder, unspecified; F17.210 Nicotine dependence, cigarettes, uncomplicated; Z88.1 Allergy status to other antibiotic agents; Z79.51 Long term (current) use of inhaled steroids; Z79.2 Long term (current) use of antibiotics; Z79.899 Other long term (current) drug therapy